=== PATIENT | female | born 1975 | race Caucasian/White ===

== ENCOUNTER 2017-12-04 12:11 | Day surgery (SDC) | payer OTHER ==
[2017-12-04 12:53] VITALS: BMI 27.6
[2017-12-04 13:56] LABS: Bilirubin Negative (Negative); Blood, Urine Large (Negative); Clarity CLEAR (Clear); Glucose, Urine (Dipstick) Negative (Negative); Leukocyte Moderate (Negative); Nitrite Negative (Negative); Protein, Urine (Dipstick) Negative (Neg-Trace); Specific Gravity, Urine 1.012 (1.002-1.036); pH, Urine 6.5 (5.0-9.0)
[2017-12-04 14:00] LABS: Bacteria/HPF 1+ HPF (None Seen); Hyaline Casts/LPF 0-3 HYALINE CAST LPF (0-3 Hyaline); Pathc Cast-AUWi Flag 0.13 (0-2.49); RBC/HPF 0-3 HPF (0-3)
--- NOTE | 2017-12-04 18:23 | HP ---
DATE OF SERVICE: 12/04/2017 PRIMARY OB: Patternmaker Hand, Abdi Tate CHIEF COMPLAINT: Side and back pain. HISTORY OF PRESENT ILLNESS: The patient is a 42-year-old G7, P5 female with an intrauterine pregnanc y at 30 weeks and 5 days who presented to labor and delivery today with a 1 day history of back and a bdominal pain. She reports that she has been having left back pain that has been radiating and wrapp ing to the front lower abdomen. She reports the pain as constant, worse with activity and movement. She also reports that she has been having some lower abdominal or pelvic pain. She reports the pain has been severe enough that she has had difficulty that she has been nauseous. The patient denies a ny fall or trauma. She denies fever. She denies burning or urgency with pain. She reports that she has been having low back pain on the left side for some time now. She denies the pain as being radi ating or sharp and stabbing. She denies uterine contractions. She denies flank pain. She is more c omfortable lying on her right side. She is much more comfortable sitting up. The patient reports sh e has 5 children, all under the age of 10 at home, all 10 and under. PAST MEDICAL HISTORY: Negative. PAST SURGICAL HISTORY: Negative. ALLERGIES: Negative. MEDICATIONS: vitamins. OB LABORATORY DATA: Unavailable. SOCIAL HISTORY: Denies drug, alcohol or tobacco use. REVIEW OF SYSTEMS: The patient denies any fever, fall, headache, chest pain, shortness of breath, wh ich she attributes to normal , nausea, vomiting, diarrhea, constipation, vaginal bleeding, l eakage of fluid, urinary urgency or frequency. PHYSICAL EXAMINATION: VITAL SIGNS: Blood pressure 116/57, heart rate of 93, respiratory rate of 20, satting 99% on room ai r, temperature 98.3. GENERAL: She appears to be in some distress, although comfortable in a right lateral position. HEENT: Normocephalic, atraumatic. CHEST: Clear to auscultation bilaterally. CARDIOVASCULAR: Heart has a regular rate and rhythm. ABDOMEN: Soft and nontender. She has some point tenderness in her left sacroiliac region and surrou nding musculature, which seems to be the source of her pain. Patient has no CVA tenderness. EXTREMITIES: Nontender, nonedematous. GENITOURINARY: Has been deferred. heart tracing performed for abdominal pain and back pain for a total of 40 minutes shows a fetu s with a baseline in the 130s with moderate long-term variability, positive accelerations, no deceler ations, no evidence of contractions on the tocometer. UA is positive for blood, positive for leukocy te esterase, positive for bacteria, positive for ketones, positive for squamous cells. ASSESSMENT AND PLAN: The patient is a 42-year-old female with musculoskeletal pain and possible urin galindo tract infection. Fetus looks reassuring and has a reactive NST. We did discuss her UA findings and gave her the option of performing a cath UA to get a better specimen in order to treat her empiri tal given the findings we had. The patient has preferred treatment over repeat testing. We have g iven a prescription for Macrobid to be taken twice a day for the next week. I have encouraged a prob iotic to be taken during that time. We also have put her through a series of stretches, which has he lped her feel much better. Patient has been counseled to do the stretches twice a day, which hopeful ly will help in the long run to minimize her discomfort. Her self propelled dredge operator, Abdi Tate arrived for the en d of her stay. The patient is to follow up with her primary OB as scheduled.
[2017-12-04] MEDS ORDERED: FLU VACC QS2017-18 36 mo. & older 0.5 ML SYRINGE IM ONE (21:00)
== END 2017-12-04 14:40 | disposition home or self-care (01) ==
LOC: L&D/OP 12:11
PROVIDERS: ATTEND Obstetrics & Gynecology
DX: O99.89 Other specified diseases and conditions complicating pregnancy, childbirth and the puerperium (principal); M54.9 Dorsalgia, unspecified; R10.30 Lower abdominal pain, unspecified; Z3A.30 30 weeks gestation of pregnancy; Z79.899 Other long term (current) drug therapy
CPT/HCPCS: 81001; 99283

== ENCOUNTER 2019-11-17 08:16 | Outpatient (CLI) | payer BC, OTHER ==
--- NOTE | 2019-11-17 09:25 | MMO ---
Bilateral MAMMO Bilat Screen [facility]. CLINICAL HISTORY: Patient is 44 years old and is seen for screening. The patient has the following family history of breast cancer: paternal aunt and cousin female. VIEWS: The views performed were: bilateral craniocaudal with tomosynthesis and bilateral mediolateral oblique with tomosynthesis. This study has been interpreted with the assistance of computer-aided detection. MAMMOGRAM FINDINGS: There are scattered fibroglandular densities. There is a high density, lobular mass measuring 17 millimeters with spiculated margins seen in the left breast at 11 o'clock. This corresponds to the area of palpable concern. A corresponding suspicious mass is seen sonographically. In the right breast, there are no suspicious masses, calcifications or areas of architectural distortion. IMPRESSION: MASS IN THE LEFT BREAST IS HIGHLY SUGGESTIVE OF MALIGNANCY. AN ULTRASOUND-GUIDED BREAST BIOPSY IS RECOMMENDED. RESULTS AND RECOMMENDATIONS DISCUSSED WITH THE PATIENT AND QUESTIONS ANSWERED. THE RESULTS OF THIS EXAM WERE SENT TO THE PATIENT. ACR BI-RADS Category 5 - Highly suggestive of malignancy - appropriate action should be taken MAMMOGRAPHY NOTE: 1. A negative mammogram report should not delay a biopsy if a dominant of clinically suspicious mass is present. 2. Approximately 10% to 15% of breast cancers are not detected by mammography. 3. Adenosis and dense breasts may obscure an underlying neoplasm. Reported by: SUSAN BOYLE MD Electonically Signed: [id number]
--- NOTE | 2019-11-17 09:55 | ULT ---
LIMITED LEFT BREAST ULTRASOUND: 11/17/2019 PROVIDED CLINICAL HISTORY: Left breast palpable abnormality. FINDINGS: Limited sonographic interrogation of the left breast was performed in the region of palpable and mamm ographic concern. At the 11 o'clock position of the left breast is a 1.5 cm, irregularly marginated, taller than wide, hypoechoic mass with internal vascularity. Limited sonographic interrogation of the left axilla demonstrates a lymph node with a focal area of c ortical thickening at one of its poles. IMPRESSION: 1. BI-RADS category 5 - highly suspicious for malignancy. Ultrasound guided biopsy of the left breast mass is recommended. Biopsy of the focal area of cortical thickening involving the axillary lymph no de should also be attempted if feasible. 2. Findings and recommendations discussed with the patient who voiced understanding. POS: OFF
--- NOTE | 2019-11-18 08:32 | ULT ---
ULTRASOUND GUIDED LEFT BREAST BIOPSY ULTRASOUND GUIDED LEFT AXILLARY LYMPH NODE BIOPSY 11/17/19 FINDINGS: Informed consent was obtained from the patient. The patient was placed on the sonography table and th e areas overlying the left axillary lymph node and 11 o'clock left breast mass were prepped and drape d in the usual sterile manner. Attention was first turned to the axillary lymph node. The skin and soft tissues were anesthetized wi th 1% buffered lidocaine and a small skin incision was made. Ultrasound guidance was utilized to obta in a core sample of the lymph node. Subsequent attempts at biopsy were not possible due to bleeding a t the site of biopsy. Continuous sonographic guidance was utilized to deploy a biopsy site marker adj acent to the axillary lymph node. Attention was next turned to the 11 o'clock breast mass. The skin and soft tissues were anesthetized with 1% buffered lidocaine. A small skin incision was made. Ultrasound guidance was utilized to obtai n three core samples of the breast mass. Bleeding at the site of biopsy precluded additional attempts . Real time ultrasound was then utilized to deploy a biopsy site marker adjacent to the breast mass. The patient developed an axillary hematoma subsequent to the procedure which was managed with suleiman nancy. The patient complained of no arm pain, numbness or tingling. There was no pallor or other hawa rning findings involving the hand. Post biopsy mammograms demonstrate appropriate clip deployment wit hin the left breast mass. The axilla could not be imaged. IMPRESSION: 1. Technically successful ultrasound guided biopsy of left axillary lymph node. 2. Technically successful ultrasound guided biopsy of left breast mass. 3. The degree of bleeding associated with both biopsies was unusual for a patient not anticoagul ated (which the patient indicated was not the case). Consider laboratory evaluation for coagulopathy as indicated. POS: OFF
--- NOTE | 2019-11-18 10:03 | MMO ---
Left Breast MAMMO Unilat Diag [facility]. CLINICAL HISTORY: Patient is 44 years old and is seen for diagnostic exam. VIEWS: The views performed were: . FILMS COMPARED: The present examination has been compared to a prior imaging study performed at [facility] on 11/17/2019. This study has been interpreted with the assistance of computer-aided detection. MAMMOGRAM FINDINGS: There are scattered fibroglandular densities. There is a stable irregular mass with associated biopsy clip seen in the upper-inner region of the left breast. IMPRESSION: STABLE MASS IN THE LEFT BREAST IS HIGHLY SUGGESTIVE OF MALIGNANCY. BIOPSY IS RECOMMENDED. THE RESULTS OF THIS EXAM WERE SENT TO THE PATIENT. ACR BI-RADS Category 5 - Highly suggestive of malignancy - appropriate action should be taken MAMMOGRAPHY NOTE: 1. A negative mammogram report should not delay a biopsy if a dominant of clinically suspicious mass is present. 2. Approximately 10% to 15% of breast cancers are not detected by mammography. 3. Adenosis and dense breasts may obscure an underlying neoplasm. Reported by: RHONDA BERNAL MD Electonically Signed: [id number]
== END 2019-11-17 08:17 | disposition home or self-care (01) ==
LOC: BICMAMMO 08:16
PROVIDERS: ATTEND Family Medicine
DX: N63.20 Unspecified lump in the left breast, unspecified quadrant (principal)
CPT/HCPCS: 19083; 77066; G0279

== ENCOUNTER 2019-12-16 07:26 | Observation (INO) | payer BC, OTHER ==
--- NOTE | 2019-12-16 09:18 | NM ---
NM Lymphoscintigraphy HISTORY: Malignant neoplasm of the upper inner quadrant of the left female breast. RADIOPHARMACEUTICAL: 409 uCi of technetium 99m filtered sulfur colloid. Left periareolar injection i n divided doses. FINDINGS: There is visualization of tracer localization in the left axillary lymph nodes. No activity is seen in the internal mammary right axillary lymph nodes. IMPRESSION: [place] lymph node(s) in the left axilla.
[2019-12-16 09:50] LABS: #Eosinphils 0.1 thou/uL (0.0-0.7); #Lymphocytes 1.3 thou/uL (1.20-3.40); #Monocytes 0.3 thou/uL (0.11-0.59); #Neutrophils 3.9 thou/uL (1.40-6.50); %Basophils 0.8 % (0.0-1.0); %Eosinophils 2.3 % (0.0-10.0); %Lymphocytes 22.7 % (21.0-51.0); %Monocytes 5.1 % (0.0-10.0); %Neutrophils 69.2 % (42.0-75.0); Hemoglobin 14.3 g/dL (12.0-16.0); Mean Corpuscular HGB CONC 33.3 g/dL (32.0-36.0); Mean Corpuscular Hemoglobin 32.2 pg (27.0-31.0); Mean Corpuscular Volume 96.7 fL (78.0-98.0); Mean Platelet Volume 6.7 fL (7.4-10.4); Platelet Count 231 thou/uL (130-400); RBC Distribution Width 11.3 % (11.5-14.5); Red Blood Cell (RBC) Count 4.44 mill/uL (4.20-5.40); White Blood Cell (WBC) Count 5.6 thou/uL (4.8-10.8)
[2019-12-16 10:09] LABS: Anion Gap 13 mmol/L (10-20); BUN (Urea Nitrogen) 8 mg/dL (7.0-18.7); Calc. Creatinine Clearance 90 mL/min (70-130); Calcium 9.1 mg/dL (7.8-10.44); Carbon Dioxide 23 mmol/L (22-29); Chloride 109 mmol/L (98-107); Estimated GFR-MDRD 84; Glucose 110 mg/dL (70-105); Potassium 4.1 mmol/L (3.5-5.1); Sodium 141 mmol/L (136-145)
[2019-12-16] MEDS ORDERED: Ketorolac Tromethamine 30 MG/ML VIAL ONE (10:31)
[2019-12-16] MEDS ORDERED: Acetaminophen 500 MG TAB ONE (10:31)
[2019-12-16] MEDS ORDERED: Dexamethasone 20 MG/5 ML VIAL ONE (10:42)
[2019-12-16] MEDS ORDERED: Rocuronium Bromide 10 MG/ML (10ML VIAL) ONE (10:42)
[2019-12-16] MEDS ORDERED: PHENYLEPHRINE-NS 100 MCG/ML 10 ML SYRINGE ONE (10:42)
[2019-12-16] MEDS ORDERED: PROPOFOL 200 MG/20 ML VIAL ONE (10:42)
[2019-12-16] MEDS ORDERED: Ondansetron PF 4 MG/2 ML Vial ONE (10:42)
[2019-12-16] MEDS ORDERED: Lidocaine 1% PF 5 ML VIAL ONE (10:42)
[2019-12-16 10:47] LABS: BHCG - Serum Negative (NEGATIVE); Pregs Control Background? CLEAR/WHITE (CLR/WHITE); Pregs Control Bar Appear? YES (CONTROL BAR)
[2019-12-16] MEDS ORDERED: Scopolamine 1.5 mg/72 hour Patch ONE (12:31)
[2019-12-16] MEDS ORDERED: Midazolam HCl 2 mg/2 ml Vial ONE (12:32)
[2019-12-16] MEDS ORDERED: Isosulfan Blue 50 MG/5 ML VIAL ONE (13:07)
[2019-12-16] MEDS ORDERED: Lidocaine 1% w/Epinephrine 1:100K 20 ML VIAL ONE (13:07)
[2019-12-16] MEDS ORDERED: Bupivacaine 0.25% HCL 30 ML VIAL ONE (13:07)
[2019-12-16] MEDS ORDERED: HYDROmorphone 2 MG/ML VIAL ONE (13:12)
[2019-12-16] MEDS ORDERED: Ketamine 50 MG/ML (10ML VIAL) ONE (13:12)
[2019-12-16] MEDS ORDERED: Fentanyl 100 MCG/2 ML VIAL ONE (13:12)
[2019-12-16] MEDS ORDERED: Meperidine HCl/PF 25 MG/ML VIAL SLOW IVP PRN (15:52)
[2019-12-16] MEDS ORDERED: HYDROmorphone 2 MG/ML VIAL SLOW IVP PRN (15:52)
[2019-12-16] MEDS ORDERED: Ketorolac Tromethamine 30 MG/ML VIAL IVP PRN (15:52)
[2019-12-16] MEDS ORDERED: Promethazine HCl 25 MG/ML VIAL SLOW IVP PRN (15:52)
[2019-12-16] MEDS ORDERED: traMADol HCl 50 MG TAB PO PRN ×2 (21:07)
[2019-12-16] MEDS ORDERED: Ondansetron ODT 4 MG TAB PO PRN (21:08)
[2019-12-16] MEDS ORDERED: Sodium Chloride 0.9% 1,000 ML IV SCH (21:15)
[2019-12-16 22:39] VITALS: BMI 23.3
--- NOTE | 2019-12-17 07:03 | PDOC.GSPN ---
Surgery Progress Note: Subj - Subjective Narrative: Mrs. Martinez is a 44 y/o female who was kept overnight on observation for pain management after her bilateral mastectomy and L SNB yesterday. Overnight she reports that her pain has been well controlled and this morning she denies any pain. She received Tramadol 50 mg at 2100 last night and has not required any subsequent medication for pain control. She reports decreased appetite last night, but no N/V and reports now that her appetite has returned and she has been eating snacks from home this morning. She is tolerating liquids well. She ambulated yesterday and had some soreness, but denies difficulty. She has voided multiple times since surgery and reports that her urine has been blue. She has not had a bowel movement since surgery but reports flatus and denies constipation. Her R SHIVA drain put out 40 mL serosanguinous fluid overnight and her L SHIVA drain put out 55 mL serosanguinous fluid overnight. She is currently receiving 50 mL/hr of NS. Surgery Progress Note: Obj - Vital signs Vital signs: Vital Signs - Most Recent Temp Pulse Resp BP Pulse Ox 98.5 F 68 16 113/72 98 12/17/19 03:04 12/17/19 03:04 12/17/19 03:04 12/17/19 03:04 12/17/19 03:04 - Physical Exam General: no distress, no pain Cardiovascular: regular rate and rhythm, no murmur Respiratory: clear to auscultation, normal respiratory effort Abdomen: soft, non tender, nondistended, positive bowel sounds (NABS) Wound: other (Her incisions are dressed and covered with an valerie wrap, which is clean, dry, and intact.) Surgery Progress Note: Results - Labs Result Diagrams: 12/16/19 09:42 12/16/19 09:42 Lab results: These are her pre-op labs. No new labs this AM. Surgery Progress Note: A/P - Problem (1) S/P bilateral mastectomy Current Visit: Yes Code(s): Z90.13 - ACQUIRED ABSENCE OF BILATERAL BREASTS AND NIPPLES Status: Acute Assessment and Plan: Pt is a 44 y/o F who is POD 1 from a bilateral mastectomy with L SNB for breast cancer. She was kept overnight for pain management, which appears to be under control at this time. Her blue urine is a result of the dye injected at the time of her operation and reassurance was provided to her with regards to this. Her vitals have remained stable and she appears to have no signs of post- operative complications at this time. Plan to d/c her fluids and send her home today with a prescription for Tramadol prn for pain. Pt will follow up next week with Dr. Rizvi for drain/staple removal and pathology results. Agree with above note. This will serve as her discharge note.
[2019-12-17] MEDS ORDERED: Prevnar 13-Val Conj/PF 0.5 ML SYRINGE IM ONE (09:00)
[2019-12-17 11:37] VITALS: BP 114/75; TEMP 98.6
--- NOTE | 2019-12-19 08:01 | OP ---
DATE OF PROCEDURE: 12/16/2019 PREOPERATIVE DIAGNOSIS: Left breast cancer, genetic susceptibility to breast cancer (BRCA2 positive). POSTOPERATIVE DIAGNOSIS: Left breast cancer, genetic susceptibility to breast cancer (BRCA2 positive). PROCEDURES PERFORMED: Bilateral mastectomy and left sentinel lymph node biopsy. ANESTHESIA: General endotracheal. INDICATIONS: The patient is a 44-year-old white female. She recently had found a palpable mass on her upper inner left breast. After discussing all options in regard to the surgical treatment of her breast cancer in light of her genetic diagnosis, she has elected to proceed with bilateral mastectomy without reconstruction. DESCRIPTION OF OPERATION: The patient had preoperative lymphoscintigraphy, which revealed left axillary sentinel lymph nodes. She was then taken to the operating room, where general endotracheal anesthesia was obtained with the patient in supine position. The left breast was infiltrated with 3 mL of isosulfan blue in the periareolar subdermal tissue and massaged for 5 minutes. Bilateral breasts and axilla were then prepped with ChloraPrep and draped in sterile fashion. Attention was turned first to the left axilla. Transverse axillary incision was created. Dissection was carried through skin and subcutaneous tissue. Neoprobe was utilized to identify areas of maximum radio intensity. I was able to identify 3 separate sentinel lymph nodes. All three of which had blue-staining and radio activity. There was one that was clearly dominant among these. This one appeared to have potentially had trauma from previous lymph node biopsy. Each of the 3 lymph nodes was dissected circumferentially and removed intact. All investing lymphatics were divided between clamps and 3-0 silk ties. Meticulous hemostasis was obtained within the wound. Additional local anesthetic was infiltrated during closure. The wound was closed in layers with 3-0 and 4-0 Monocryl. Attention was then turned to the right breast. An elliptical incision was created across the right breast. She had fairly large breasts (C cup) with substantial ptosis. Attempts were made to create incision such that there would not be excessive redundant skin after closure. Flaps were raised superiorly, inferiorly, and medially down to the chest wall. The breast was then swept off the chest wall towards the axilla. Just lateral to the pectoralis, the tissue was divided. The axillary tail was tagged for orientation and the entire breast was passed off the field to Pathology. Meticulous hemostasis was obtained. All dissection was carried out using the plasma blade and hemostasis was obtained with this as well. The wound was irrigated. I then tailored the skin edges to us be able to close without substantial redundancy. This required dog-ear corrections that were angled inferiorly, both medially and laterally. The wound was then closed over a 19-Uzbek round-fluted drain, which was brought out inferiorly. The closure was with 3-0 Vicryl and skin gilda. Attention was then turned to the left breast. An incision was then created across the left breast in elliptical fashion similar to that of the right breast. The area of the palpable malignancy however was identified and attempts were made to create the upper incision of the skin flap was close to the malignancy as possible. Flaps were then raised as per the other side. Attention was turned to the area of the malignancy to ensure appropriate anterior margin over the malignancy. As it was taken off the chest wall, there was no concern for posterior margin and the anterior margin appeared to be clear as well. The breast was again swept off the chest wall towards the axilla and removed in a similar fashion. It was also tagged for orientation. Again, the skin was tailored to allow a redundancy free closure. This again required dog-ear corrections medially and laterally. I was actually able to remove the skin that was over the area of the malignancy during the course of tailor in the flaps and this was submitted as a separate specimen. The drain was placed on the left and it had been placed on the right. Drains were secured with 3-0 nylon sutures. Dressings were applied using Xeroform gauze with fluffed gauze and a Felipe wrap. There were no complications. Blood loss was minimal, but estimated at about 150 mL. The patient tolerated the procedure well and was taken to recovery room in stable condition. Job ID: [id number]
== END 2019-12-17 13:30 | disposition home or self-care (01) ==
LOC: SDC 07:26 → SJJU 21:02
PROVIDERS: ADMIT Specialist; ATTEND Specialist
PROC: 0HTV0ZZ Resection of Bilateral Breast, Open Approach (ICD-10-PCS; principal; 2019-12-17)
PROC: 07B60ZX Excision of Left Axillary Lymphatic, Open Approach, Diagnostic (ICD-10-PCS; 2019-12-17)
DX: D05.12 Intraductal carcinoma in situ of left breast (principal); N60.81 Other benign mammary dysplasias of right breast; Z15.01 Genetic susceptibility to malignant neoplasm of breast; Z79.899 Other long term (current) drug therapy
CPT/HCPCS: 36415; 78195; 80048; 84703; 85025; 88307; 88333; 88334; 88342; 90471; 90670; A9541; G0009; G0378; J0690; J1100; J1170; J1885; J2001; J2250; J2405; J2704; J3010; Q9968; S0020

== ENCOUNTER 2020-04-19 11:17 | Outpatient (CLI) | payer BC, OTHER | END 2020-04-19 11:18 | disposition home or self-care (01) | LOC: LAB 11:17 | PROVIDERS: ATTEND Obstetrics & Gynecology | DX: Z01.812 Encounter for preprocedural laboratory examination (principal); Z11.59 Encounter for screening for other viral diseases; C50.919 Malignant neoplasm of unspecified site of unspecified female breast | CPT/HCPCS: 84703; 85025; 86850; 86900; 86901; 87635; U0003 ==

== ENCOUNTER 2020-04-21 17:10 | Outpatient (CLI) | payer BC, OTHER ==
[2020-04-22 12:19] LABS: SARS-CoV-2 MS2 Positive; SARS-CoV-2 N Gene Negative; SARS-CoV-2 S Gene Negative; SARS-CoV-2 orf1ab Negative
== END 2020-04-21 17:11 | disposition home or self-care (01) ==
LOC: SCSLAB 17:10
PROVIDERS: ATTEND Obstetrics & Gynecology
DX: Z01.812 Encounter for preprocedural laboratory examination (principal); Z11.59 Encounter for screening for other viral diseases; C50.919 Malignant neoplasm of unspecified site of unspecified female breast
CPT/HCPCS: 87635; U0003

== ENCOUNTER 2020-04-25 07:28 | Day surgery (SDC) | payer BC ==
[2020-04-19 13:53] LABS: BHCG - Serum Negative (NEGATIVE); Pregs Control Background? CLEAR/WHITE (CLR/WHITE); Pregs Control Bar Appear? YES (CONTROL BAR)
[2020-04-19 13:58] LABS: #Eosinphils 0.2 thou/uL (0.0-0.7); #Lymphocytes 1.5 thou/uL (1.20-3.40); #Monocytes 0.3 thou/uL (0.11-0.59); #Neutrophils 1.9 thou/uL (1.40-6.50); %Basophils 0.9 % (0.0-1.0); %Lymphocytes 38.2 % (21.0-51.0); %Monocytes 7.1 % (0.0-10.0); %Neutrophils 49.9 % (42.0-75.0); Hemoglobin 13.9 g/dL (12.0-16.0); Mean Corpuscular HGB CONC 35.2 g/dL (32.0-36.0); Mean Corpuscular Hemoglobin 33.6 pg (27.0-31.0); Mean Corpuscular Volume 95.3 fL (78.0-98.0); Mean Platelet Volume 7.8 fL (7.4-10.4); Platelet Count 198 thou/uL (130-400); RBC Distribution Width 11.7 % (11.5-14.5); Red Blood Cell (RBC) Count 4.13 mill/uL (4.20-5.40); White Blood Cell (WBC) Count 3.8 thou/uL (4.8-10.8)
[2020-04-20 15:24] VITALS: BMI 20.9
--- NOTE | 2020-04-25 07:43 | HP ---
HISTORY OF PRESENT ILLNESS: Ms. Martinez is a 44-year-old white female, G7, P6, A1, who was recently diagnosed with breast cancer, stage T2 N0 M0, grade 3 intraductal carcinoma. Estrogen receptor positive 62%, progesterone positive 29.4%, HER2 negative. She has also been confirmed to be a BRCA1 mutation carrier and has subsequently had bilateral mastectomies for therapy. The patient has been referred by her oncologist, Dr. Krys Disla, for prophylactic hysterectomy and bilateral salpingo-oophorectomy due to BRCA1 diagnosis along with need for long-term tamoxifen therapy. The patient denies any abnormal uterine bleeding at this time. She had a lead simulation modeling engineer pelvic ultrasound in my office recently, that showed a normal uterus and normal ovaries with no suspicious masses seen. PAST SURGICAL HISTORY: She has had removal of a cyst on her left ear in 1994 and recent bilateral mastectomies. PAST MEDICAL HISTORY: Otherwise negative. Last Pap smear was normal in 2019. SOCIAL HISTORY: She is , has 6 children, lives with her spouse, nonsmoker, minimal alcohol use. CURRENT MEDICATIONS: 1. B complex. 2. vitamin. 3. Tamoxifen 20 mg tablet. 4. Turmeric 40 mg capsule. 5. Vitamin C. REVIEW OF SYSTEMS: As per HPI. PHYSICAL EXAMINATION: VITAL SIGNS: Height 63 inches, weight 121, temp 98, pulse 86, and systolic blood pressure 120/70. HEENT: Within normal limits. CHEST: Clear to auscultation. HEART: Regular rate and rhythm. S1 and S2 heart sounds. No murmurs, rubs or gallops. Status post bilateral mastectomy. Well-healed incision sites. ABDOMEN: Soft, nontender, and nondistended. She has a diastasis rectus noted. PELVIC: Vulva and vagina had no lesions. Cervix had no lesions. Uterus, small and nontender. Adnexa nontender with no masses. ASSESSMENT: This is a 44-year-old white female, G7, P6, A1 with BRCA1 hereditary breast ovarian cancer mutation and recent diagnosis of T2 N0 M0 breast cancer with ER and [place] positive. PLAN: Plan is for robotic TLH-BSO with pelvic washings due to the BRCA1 mutation and also plan for long time use of therapy for tamoxifen. Risks and benefits of surgery have been discussed in detail. She is set for surgery on the . Job ID: [id number]
[2020-04-25] MEDS ORDERED: Gabapentin 300 MG CAP ONE (08:00)
[2020-04-25] MEDS ORDERED: CeleCOXIB 100 MG CAP ONE (08:00)
[2020-04-25] MEDS ORDERED: Famotidine/PF 20 mg/2ml Vial ONE (08:00)
[2020-04-25] MEDS ORDERED: Scopolamine 1.5 mg/72 hour Patch ONE (08:45)
[2020-04-25] MEDS ORDERED: Bupivacaine PF 0.5% 30 ML VIAL ONE (09:20)
[2020-04-25] MEDS ORDERED: Lidocaine 1% w/Epinephrine 1:100K 20 ML VIAL ONE (09:20)
[2020-04-25] MEDS ORDERED: Fentanyl 100 MCG/2 ML VIAL ONE ×2 (09:26→12:42)
[2020-04-25] MEDS ORDERED: Midazolam HCl 2 mg/2 ml Vial ONE (09:27)
[2020-04-25] MEDS ORDERED: Propofol 500 MG/50 ML VIAL ONE (09:33)
[2020-04-25] MEDS ORDERED: Lidocaine 1% PF 5 ML VIAL ONE (11:00)
[2020-04-25] MEDS ORDERED: PROPOFOL 200 MG/20 ML VIAL ONE (11:00)
[2020-04-25] MEDS ORDERED: EPHEDRINE 25 MG/5 ML SYRINGE ONE (11:00)
[2020-04-25] MEDS ORDERED: PHENYLEPHRINE-NS 100 MCG/ML 10 ML SYRINGE ONE (11:00)
[2020-04-25] MEDS ORDERED: Glycopyrrolate 0.2 MG/ML 5 ML SYRINGE ONE (11:00)
[2020-04-25] MEDS ORDERED: Rocuronium Bromide 10 MG/ML (10ML VIAL) ONE (11:00)
[2020-04-25] MEDS ORDERED: Dexamethasone 20 MG/5 ML VIAL ONE (11:00)
[2020-04-25] MEDS ORDERED: Ondansetron PF 4 MG/2 ML Vial ONE (11:00)
[2020-04-25] MEDS ORDERED: Meperidine HCl/PF 25 MG/ML VIAL ONE ×2 (11:44→11:52)
[2020-04-25] MEDS ORDERED: Simethicone Chewable 80 MG TAB PO PRN (13:40)
[2020-04-25] MEDS ORDERED: Acetaminophen 325 MG TAB PO PRN (13:40)
[2020-04-25] MEDS ORDERED: Zolpidem Tartrate 5 MG TAB PO PRN (13:40)
[2020-04-25] MEDS ORDERED: Morphine 4 MG/ML VIAL SLOW IVP PRN (13:40)
[2020-04-25] MEDS ORDERED: Bisacodyl 10 MG SUPP PR PRN (13:40)
[2020-04-25] MEDS ORDERED: Lactated Ringer's 1,000 ML IV SCH (13:40)
[2020-04-25] MEDS ORDERED: traMADol HCl 50 MG TAB PO PRN (13:40)
[2020-04-25] MEDS ORDERED: Ondansetron PF 4 MG/2 ML Vial IVP PRN (13:40)
[2020-04-25] MEDS ORDERED: diphenhydrAMINE 25 MG CAP PO PRN (13:40)
--- NOTE | 2020-04-25 13:58 | OP ---
DATE OF PROCEDURE: 04/25/2020 PREOPERATIVE DIAGNOSES: 1. A 44-year-old white female with history of breast cancer. 2. BRCA positive, positive carrier. POSTOPERATIVE DIAGNOSES: 1. A 44-year-old white female with history of breast cancer. 2. BRCA positive, positive carrier. PROCEDURE PERFORMED: 1. Robotic total laparoscopic hysterectomy and bilateral salpingo-oophorectomy. 2. Pelvic washing. BALLISTICS TESTER SURGEON: Stephen Tipton MD ANESTHESIA: General endotracheal. ESTIMATED BLOOD LOSS: Less than 25 mL. COMPLICATIONS: None. COUNTS: Correct x2. ANTIBIOTICS: 2 g Ancef on-call to OR. FINDINGS: 1. Normal-appearing bilateral fallopian tubes, uterus, ovaries, cervix. 2. Normal-appearing liver edge noted. 3. Bladder was watertight to fluid distention over 300 mL postprocedure and also clear urine present in Grace catheter noted. 4. Bilateral ureteral peristalsis visualized postprocedure. DISPOSITION: To recovery room, stable. DESCRIPTION OF PROCEDURE: The patient previously received informed consent in regard to surgery. She was taken back to the operating room, where she received a general endotracheal anesthetic agent without complications. She was placed in the dorsal lithotomy position with the use of Raul stirrups and prepped and draped in usual sterile fashion. At this time, a Grace catheter was placed. A side-arm speculum was placed in the vagina. The anterior lip of the cervix was grasped with a single-tooth tenaculum. The uterus was sounded to 8 cm and a size 8 cm YI uterine manipulator with a 4.0 cm cervical cup was placed in usual fashion. Tenaculum and speculum were then removed. The attention was then turned to the abdomen, where perspective trocar sites were infiltrated with 0.5% Marcaine with epinephrine. A 10 mm supraumbilical incision was made. Veress needle was entered in the abdominal cavity and abdomen was insufflated to the patient's pressure of 15. Veress needle was removed and then a 12 mm trocar was placed through the fascial defect. Then, the patient was placed in Trendelenburg position. Additional bilateral lower quadrant 8 mm trocars were placed under laparoscopic guidance along with the right upper quadrant 11 mm bar assistant port. The robot was then docked in usual fashion. I then broke scrub and then proceeded to carry out the surgery from the operative console where my assistants remained at the bedside. The uterus was elevated from the pelvis with the uterine manipulator. The left fallopian tube and ovary were identified, and the left fallopian tube was grasped by my bar assistant with atraumatic grasper. The infundibulopelvic ligament was isolated from the pelvic sidewall, noted to be superior to the course of the ureter. It was coagulated with bipolar fenestrated cautery and then it was transected. The broad ligament was then coagulated and transected serially until the left round ligament was reached, hugging close to the uterine specimen. The anterior leaf of the broad ligament was then incised and the vesicouterine peritoneum was dissected both sharply and bluntly in a layering technique dropping the bladder safely past the cervical vaginal margin. Vesicouterine vessels were skeletonized in layering technique and individually cauterized in the internal cervical os region. This was carried out in likewise fashion on the patient's right infundibulopelvic pelvic ligament. Again, it was coagulated and transected and serial coagulation of broad ligament hugging close to uterus was carried out until the right round ligament was reached, which was coagulated and transected. The remainder of the vesicouterine peritoneum was incised, layering it out, dissecting it atraumatically past the cervical vaginal margin. Uterine vessels again were skeletonized on the patient's right side and individually coagulated the internal cervical os. Hemostasis was confirmed. Once we felt that the bladder had been safely dissected past the cervical vaginal margin, the anterior colpotomy was then created starting from 12 to 3 and 12 to 9 o'clock position. It was then completed posteriorly from the 6 to 9 and 6 to 3 o'clock position. The uterine specimen was then delivered in the vaginal vault. My bar assistant switched out the monopolar scissors with a Kimani needle lifter driver. Then, I ran the vaginal cuff, coagulating any areas of oozing with bipolar fenestrated cautery. A Stratafix suture was then brought into the operative field by my bar assistant, and then, I closed the vaginal cuff starting at the right angle full-thickness closure back towards the left angle and back towards the midline. The excess suture was trimmed and the suture needle with the suture was removed in the right upper quadrant bar assistant port. The pelvis was then irrigated and suctioned. All areas of the pedicles were noted to be hemostatic. We backfilled the bladder and it was noted to be watertight over 300 mL of fluid distention. There was some area of oozing on the left pelvic sidewall superior to the ureter. This was carefully coagulated to achieve hemostasis and Juan was placed over the vaginal cuff bed and pelvic sidewall beds for added hemostasis. The pressure was dropped below 5 and no any areas of bleeding in the pelvis were visualized. The robot was undocked. Trocar sleeves were removed. A pursestring suture of 0 Vicryl was placed in the fascial defect in the umbilical area in the remainder of the port sites were closed with 4-0 Monocryl subcuticular. Dermabond. The patient was then awaken from anesthesia. The vaginal vault was also checked with the sponge stick and hemostasis had been confirmed. She was then transferred to recovery room in stable condition this is dictation on Clarisse Martinez thank you. Job ID: [id number]
[2020-04-25] MEDS: Ketorolac Tromethamine 30 MG/ML VIAL IVP SCH ×2 (15:08→19:35)
[2020-04-25 17:08] VITALS: BP 99/55; TEMP 98.2
[2020-04-25] MEDS ORDERED: Ibuprofen 800 MG TAB PO SCH (21:00)
--- NOTE | 2020-04-26 12:45 | DIS ---
DATE OF ADMISSION: 04/25/2020 DATE OF DISCHARGE: 04/25/2020 DATE OF SURGERY: 04/25. DIAGNOSES: 1. Personal history of breast cancer. 2. BRCA1 positive. PROCEDURE PERFORMED: Robotic total laparoscopic hysterectomy with bilateral salpingo-oophorectomy. SUMMARY OF HOSPITAL COURSE: Ms. Martinez is a 44-year-old white female, who recently diagnosed with BRCA1 positive breast cancer status post mastectomy and prophylactic mastectomy of the unaffected breasts. She underwent a robotic TLH-BSO with pelvic washings for prophylaxis and her estrogen receptor-positive nature of her breast tumor. The patient did well and was ambulating, voiding, and tolerating diet with good pain control the evening of her surgery. She desired discharge home and she was discharged home. Stable vitals. Pathology is pending at time of discharge, and she has a followup in 2 and 6 weeks postop. Tramadol 50 mg q.6 hours p.r.n. pain and [id number] ibuprofen for pain control as noted. Job ID: [id number]
== END 2020-04-25 19:26 | disposition home or self-care (01) ==
LOC: SDC 07:28 → 3SE 11:30 → SDC 19:26
PROVIDERS: ATTEND Obstetrics & Gynecology
PROC: 0UT94ZZ Resection of Uterus, Percutaneous Endoscopic Approach (ICD-10-PCS; principal; 2020-04-25)
PROC: 0UT74ZZ Resection of Bilateral Fallopian Tubes, Percutaneous Endoscopic Approach (ICD-10-PCS; principal; 2020-04-25)
PROC: 0UT24ZZ Resection of Bilateral Ovaries, Percutaneous Endoscopic Approach (ICD-10-PCS; principal; 2020-04-25)
DX: Z40.02 Encounter for prophylactic removal of ovary(s) (principal); Z40.09 Encounter for prophylactic removal of other organ; N72 Inflammatory disease of cervix uteri; D27.0 Benign neoplasm of right ovary; N83.8 Other noninflammatory disorders of ovary, fallopian tube and broad ligament; C50.919 Malignant neoplasm of unspecified site of unspecified female breast; Z17.0 Estrogen receptor positive status [ER+]; Z15.02 Genetic susceptibility to malignant neoplasm of ovary; Z79.810 Long term (current) use of selective estrogen receptor modulators (SERMs); Z79.899 Other long term (current) drug therapy; Z88.5 Allergy status to narcotic agent; Z88.6 Allergy status to analgesic agent; Z90.13 Acquired absence of bilateral breasts and nipples
CPT/HCPCS: 36415; 84703; 85025; 86850; 86900; 86901; 88112; 88307; J0690; J1100; J1885; J2001; J2175; J2250; J2405; J2704; J3010; S0020; S0028

== ENCOUNTER 2020-09-05 08:09 | Outpatient (CLI) | payer BC ==
--- NOTE | 2020-09-05 09:08 | CT ---
EXAM: CT Chest Abd Pelvis W Con PROVIDED CLINICAL HISTORY: Breast cancer COMPARISON: None FINDINGS: The heart, pericardium and great vessels demonstrate a normal CT appearance. Residual thymic tissue i s seen within the anterior mediastinum. There is an enlarged left axillary lymph node measuring about 1.6 cm in short axis. No additional thoracic lymph node enlargement is evident. The airway appe ars patent and of normal caliber. The lungs are free of significant opacity. There is no pleural fluid, pleural thickening or pneumothorax apparent. The liver, spleen, pancreas and adrenal glands appear unremarkable. There are multiple 2 to 3 mm nono bstructing renal calculi bilaterally. There are subcentimeter renal hypodensities bilaterally. There is conspicuous colonic fecal retention. There is no evidence for bowel obstruction. No inflamma tory fat stranding, free fluid or lymph node enlargement apparent. Scattered atherosclerotic vascular calcifications are seen. There are multiple sub-5 mm sclerotic foci noted throughout the pelvis and spine. Some of these demon strate features typical for bone islands. There are less well-defined sclerotic foci present within both iliac bones, largest of which measures about 7 mm. 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 IMPRESSION: 1. Enlarged left axillary lymph node, suspicious for metastasis. 2. Multiple small sclerotic osseous lesions, some of which are suspicious for metastatic foci.
--- NOTE | 2020-09-05 13:58 | NM ---
WHOLE BODY BONE SCAN: 09/05/20 HISTORY: Malignant neoplasm of upper inner quadrant of the left female breast. RADIOPHARMACEUTICAL: 32.7 millicuries technetium 99-MDP injected intravenously. COMPARISON: None. CORRELATION: CT chest, abdomen and pelvis on same date. FINDINGS: No abnormal areas of tracer localization is seen in the skeleton to suggest possible metastatic disea se. Tracer excretion through the kidneys are within normal limits. The scoliotic foci noted on the CT scan are too small to be evaluated on the bone scan. IMPRESSION: No scintigraphic evidence of osseous metastatic disease. POS: AH
== END 2020-09-05 08:10 | disposition home or self-care (01) ==
LOC: CT 08:09 → NM 08:10
PROVIDERS: ATTEND Internal Medicine Hematology & Oncology
DX: C50.212 Malignant neoplasm of upper-inner quadrant of left female breast (principal); R59.0 Localized enlarged lymph nodes; M89.8X9 Other specified disorders of bone, unspecified site
CPT/HCPCS: 71260; 74177; 78306; A9503

== ENCOUNTER 2020-09-18 07:12 | Outpatient (CLI) | payer BC, OTHER ==
[2020-09-18 13:00] LABS: #Eosinphils 0.2 10x3/uL (0.0-0.5); #Monocytes 0.4 10x3/uL (0.0-1.1); #Neutrophils 2.6 10x3/uL (1.5-8.4); %Basophils 0.8 % (0.0-2.0); %Eosinophils 3.6 % (0.0-6.0); %Lymphocytes 35.2 % (18.0-47.0); %Monocytes 7.7 % (0.0-10.0); %Neutrophils 52.5 % (40.0-75.0); Hemoglobin 13.1 g/dL (12.0-16.0); Mean Corpuscular HGB CONC 34.6 G/DL (32.0-36.0); Mean Corpuscular Hemoglobin 31.6 PG (27.0-33.0); Mean Corpuscular Volume 91.3 fl (80.0-100.0); Mean Platelet Volume 9.3 fl (7.4-10.4); Platelet Count 231 10x3/uL (130-400); Red Blood Cell (RBC) Count 4.15 10x6/uL (3.90-5.20); White Blood Cell (WBC) Count 4.9 10x3/uL (4.5-11.0)
[2020-09-18 13:23] LABS: Anion Gap 19 mmol/L (10-20); BUN (Urea Nitrogen) 10 mg/dL (7.0-18.7); Calc. Creatinine Clearance 0 mL/min (70-130); Calcium 9.5 mg/dL (7.8-10.44); Carbon Dioxide 21 mmol/L (22-29); Chloride 106 mmol/L (98-107); Estimated GFR-MDRD 78; Glucose 101 mg/dL (70-105); Potassium 3.9 mmol/L (3.5-5.1); Sodium 142 mmol/L (136-145)
[2020-09-19 15:35] LABS: SARS-CoV-2 MS2 Positive; SARS-CoV-2 N Gene Negative; SARS-CoV-2 S Gene Negative; SARS-CoV-2 by NAA Not Detected (NotDetected); SARS-CoV-2 orf1ab Negative
== END 2020-09-18 07:13 | disposition home or self-care (01) ==
LOC: LABBT 07:12
PROVIDERS: ATTEND Specialist
DX: Z01.812 Encounter for preprocedural laboratory examination (principal); Z20.828 Contact with and (suspected) exposure to other viral communicable diseases; C50.212 Malignant neoplasm of upper-inner quadrant of left female breast
CPT/HCPCS: 80048; 85025; 87635; U0003

== ENCOUNTER 2020-09-21 09:47 | Day surgery (SDC) | payer BC ==
[2020-09-20 11:15] VITALS: BMI 20.2
[~2020-09-21 09:47] MED LIST: Dexamethasone 20 MG/5 ML VIAL ONE; Lidocaine 1% PF 5 ML VIAL ONE; Ondansetron PF 4 MG/2 ML Vial ONE; PROPOFOL 200 MG/20 ML VIAL ONE; ePHEDrine 50 MG/ML VIAL ONE
[2020-09-21] MEDS ORDERED: Acetaminophen 500 MG TAB ONE (10:26)
[2020-09-21] MEDS ORDERED: Ketorolac Tromethamine 30 MG/ML VIAL ONE (10:26)
[2020-09-21] MEDS ORDERED: Scopolamine 1.5 mg/72 hour Patch ONE (10:53)
[2020-09-21] MEDS ORDERED: Famotidine/PF 20 mg/2ml Vial ONE (10:53)
[2020-09-21] MEDS ORDERED: Midazolam HCl 2 mg/2 ml Vial ONE (12:16)
[2020-09-21] MEDS ORDERED: Lidocaine 1% w/Epinephrine 1:100K 20 ML VIAL ONE (12:32)
[2020-09-21] MEDS ORDERED: Sodium Bicarbonate 2.5 MEQ/5 ML VIAL ONE (12:32)
[2020-09-21] MEDS ORDERED: Bupivacaine 0.25% HCL 30 ML VIAL ONE (12:32)
[2020-09-21] MEDS ORDERED: Isosulfan Blue 50 MG/5 ML VIAL ONE (12:34)
[2020-09-21] MEDS ORDERED: HYDROmorphone 0.5 MG/0.5 ML SYRINGE ONE (12:39)
[2020-09-21] MEDS ORDERED: Fentanyl 100 MCG/2 ML VIAL ONE (12:39)
--- NOTE | 2020-09-21 15:09 | RAD ---
XR Chest 1 View HISTORY: Breast cancer. Mediport placement COMPARISON: 05/31/2011 FINDINGS: The heart size is normal. There has been placement of a right sided Port-A-Cath with tip in the projection of the SVC. The lungs are well expanded without focal areas of consolidation, pneumothorax or pleural effusions. There are surgical clips in the left axilla.. IMPRESSION: No radiographic evidence of acute cardiopulmonary process.
--- NOTE | 2020-09-21 16:29 | OP ---
DATE OF PROCEDURE: 09/21/2020 PREOPERATIVE DIAGNOSIS: Metastatic/recurrent left breast cancer with recurrence within the left axilla. POSTOPERATIVE DIAGNOSIS: Metastatic/recurrent left breast cancer with recurrence within the left axilla. OPERATIONS PERFORMED: 1. Placement of right subclavian low-profile power compatible MediPort. 2. Left axillary lymph node dissection. ANESTHESIA: General endotracheal. INDICATIONS: The patient is a 45-year-old white female. She is status post bilateral mastectomy without reconstruction about 8 or 9 months ago. She recently presented with a palpable mass in her left axilla, which is a biopsy-proven breast cancer recurrence. She, of note, had 4 negative sentinel lymph nodes at the time of her initial surgery. Chemotherapy had been recommended to her and she had declined this. She is returned to the operating room at this time for MediPort placement for upcoming chemotherapy and axillary lymph node dissection. DESCRIPTION OF OPERATION: Informed consent was obtained. The patient was taken to the operating room where general anesthesia was obtained with the patient in supine position. Bilateral chest was prepped with ChloraPrep and draped in sterile fashion. Attention was turned first to the right side. Local anesthetic was infiltrated and large gauge needle was passed into the right subclavian vein. Guidewire was passed through the needle and fluoroscopically confirmed to enter the superior vena cava. Additional local anesthetic was infiltrated and a skin incision was created based on needle insertion. A pocket was dissected, extended inferiorly. Introducer dilator was passed over the guidewire under vision and the guidewire was removed. Catheter was passed through the introducer, which was removed in the usual peel-apart fashion. The catheter was positioned at the atriocaval junction and it was trimmed to appropriate length and was secured to the locking hub of the MediPort. The port was placed in subcutaneous pocket where it was secured with a couple of 3-0 Prolene sutures to the pectoral fascia. The wound was closed in layers with 3-0 and 4-0 Monocryl. Additional local anesthetic was instilled around the port. The port aspirated blood freely and was flushed with heparinized saline. Final imaging of the port revealed appropriate location of the port and catheter. Attention was then turned to the left axilla. She had a prior inferior axillary incision from her previous sentinel node biopsy. There was a recent insect bite towards the anterior aspect of this. This appeared to have some inflammatory changes associated with this. Local anesthetic was infiltrated and the incision was reopened. Inflammatory tissue anteriorly was excised. Meticulous hemostasis was maintained using electrocautery. Flaps were raised inferiorly, superiorly and posteriorly. Dissection was carried down to the pectoralis muscle. The dissection was then carried up along the pectoralis to the axillary vein. On the inferior aspect of the axillary vein, the fatty tissue was swept inferiorly. There was what appeared to be a dominant venous tributary feeding a large palpable malignancy. This was ligated with 3-0 silk. All investing lymphatics throughout the axilla were divided between clips and incised with scissors. The long thoracic nerve was identified medially and the thoracodorsal nerve identified as it invested the latissimus posterior to the thoracodorsal artery and vein. There was a dominant malignancy within the nodes. There was at least one other enlarged firm node. There were several other identified nodes, they were not as big, but were potentially concerning. All tissue was swept inferiorly out of the axilla and submitted to Pathology. Meticulous hemostasis was obtained within the wound. It was irrigated with saline. All irrigant was aspirated. The wound was closed in layers with 3-0 and 4-0 Monocryl. Additional local anesthetic was instilled in the wound and infiltrated around it during closure. Dermabond was placed externally. A #19 round fluted drain had been placed within the wound bed prior to closure and this was brought out inferiorly and secured with 3-0 nylon suture. Sterile occlusive dressing was applied over the drain exit site. The patient tolerated the procedure well and was taken to Recovery in stable condition. Job ID: [id number]
== END 2020-09-21 16:50 | disposition home or self-care (01) ==
LOC: SDC 09:47
PROVIDERS: ATTEND Specialist
PROC: 02HV33Z Insertion of Infusion Device into Superior Vena Cava, Percutaneous Approach (ICD-10-PCS; principal; 2020-09-21)
PROC: 0JH60WZ Insertion of Totally Implantable Vascular Access Device into Chest Subcutaneous Tissue and Fascia, Open Approach (ICD-10-PCS; principal; 2020-09-21)
PROC: 07T60ZZ Resection of Left Axillary Lymphatic, Open Approach (ICD-10-PCS; principal; 2020-09-21)
PROC: B518ZZA Fluoroscopy of Superior Vena Cava, Guidance (ICD-10-PCS; principal; 2020-09-21)
DX: C50.212 Malignant neoplasm of upper-inner quadrant of left female breast (principal); C77.3 Secondary and unspecified malignant neoplasm of axilla and upper limb lymph nodes; Z17.0 Estrogen receptor positive status [ER+]; Z79.811 Long term (current) use of aromatase inhibitors; Z79.899 Other long term (current) drug therapy; Z88.5 Allergy status to narcotic agent
CPT/HCPCS: 71045; 88307; C1788; J0690; J1100; J1170; J1642; J1885; J2250; J2405; J2704; J3010; J3490; Q9968; S0020; S0028

== ENCOUNTER 2020-10-03 13:20 | Outpatient (CLI) | payer BC | END 2020-10-03 13:21 | disposition home or self-care (01) | LOC: ULT 13:20 | PROVIDERS: ATTEND Internal Medicine Hematology & Oncology | DX: Z51.11 Encounter for antineoplastic chemotherapy (principal); C50.212 Malignant neoplasm of upper-inner quadrant of left female breast; C77.3 Secondary and unspecified malignant neoplasm of axilla and upper limb lymph nodes; Z79.899 Other long term (current) drug therapy | CPT/HCPCS: 93306 ==

== ENCOUNTER 2021-02-27 09:01 | Outpatient (CLI) | payer BC ==
[2021-02-27] MEDS ORDERED: Iopamidol-370 76% 500 ML 1 ML ONE (09:11)
== END 2021-02-27 09:02 | disposition home or self-care (01) ==
LOC: BICCT 09:01
PROVIDERS: ATTEND Internal Medicine Hematology & Oncology
DX: C50.212 Malignant neoplasm of upper-inner quadrant of left female breast (principal); C77.3 Secondary and unspecified malignant neoplasm of axilla and upper limb lymph nodes
CPT/HCPCS: 71260; 74177; Q9967

== ENCOUNTER 2022-09-25 08:34 | Outpatient (CLI) | payer BC | END 2022-09-25 08:35 | disposition home or self-care (01) | LOC: BICULT 08:34 | PROVIDERS: ATTEND Internal Medicine Hematology & Oncology | DX: C77.3 Secondary and unspecified malignant neoplasm of axilla and upper limb lymph nodes (principal); C50.212 Malignant neoplasm of upper-inner quadrant of left female breast | CPT/HCPCS: 76999 ==